=== PATIENT | female | born 1940 | race Caucasian/White ===

== ENCOUNTER 2016-10-24 14:46 | Emergency (ER) | payer MEDICARE, OTHER ==
[~2016-10-24] VITALS: Ht 144.8 cm; Wt 84.1 kg
[~2016-10-24 14:46] MED LIST: ACET325T40 PO; AMIO200T2 PO; ATOR20TA38 PO; BENA10TA48 PO; ETOMIDATE 20 MG INJ ONE; LEVO25TA53 PO; PANT40TA3 PO; POLY17PO6 PO; PROPOFOL 200 MG INJ ONE; SUCCINYLCHOLINE CHLORIDE 100 MG/5 ML SYG IV ONE; UDCOL PO
[2016-10-24] MEDS ORDERED: SOD CHLORIDE 0.9% 500 ML IV STA (14:52)
[2016-10-24 15:02] LABS: BASOPHIL # 0.1 10^3/ul (0.0-0.1); BASOPHILS % 0.4 % (0.0-2.0); EOSINOPHILS # 0.2 10^3/ul (0.0-0.5); HEMATOCRIT 45.4 % (37.0-47.0); HEMOGLOBIN 14.9 g/dl (12.0-16.0); LYMPHOCYTES # 4.4 10^3/ul (0.8-2.9); LYMPHOCYTES % 29.7 % (15.0-51.0); MEAN CORPUSCULAR HEMOGLOBIN 29.4 pg (29.0-33.0); MEAN CORPUSCULAR HGB CONC 32.8 g/dl (32.0-37.0); MEAN CORPUSCULAR VOLUME 89.7 fl (82.0-101.0); MEAN PLATELET VOLUME 10.1 fl (7.4-10.4); MONOCYTE # 1.3 10^3/ul (0.3-0.9); MONOCYTES % 8.6 % (0.0-11.0); NEUTROPHIL # 8.8 10^3/ul (1.6-7.5); NEUTROPHILS % 59.8 % (39.0-77.0); PLATELET COUNT 434 10^3/UL (140-415); RED BLOOD COUNT 5.06 10^6/ul (4.20-5.40); RED CELL DISTRIBUTION WIDTH 13.2 % (11.5-14.5); WHITE BLOOD COUNT 14.7 10^3/ul (4.8-10.8)
[2016-10-24 15:11] VITALS: Ht 144.8 cm; Wt 84.1 kg
[2016-10-24 15:16] LABS: INR 1.02; PROTIME 13.4 Sec (12.2-14.2)
[2016-10-24 15:22] LABS: ANION GAP 26 (8-16); BLOOD UREA NITROGEN 26 mg/dl (7-20); CARBON DIOXIDE 25 mmol/L (21-31); CHLORIDE 94 mmol/L (97-110); CREATININE 1.41 mg/dl (0.44-1.00); GLUCOSE 153 mg/dl (70-220); POTASSIUM 5.1 mmol/L (3.5-5.1); SODIUM 140 mmol/L (135-144)
[2016-10-24] MEDS ORDERED: ETOMIDATE 20 MG INJ IV ONE (15:30)
[2016-10-24] MEDS ORDERED: CEFTRIAXONE 1 GM/50 ML (PMX) 50 ML IVPB ONE (15:30)
[2016-10-24] MEDS ORDERED: PROPOFOL 100 ML IV ONE (15:30)
[2016-10-24 15:33] LABS: TROPONIN-I < 0.012 ng/ml (0.00-0.12)
[2016-10-24] MEDS ORDERED: ATOR20TA38 PO (16:22)
[2016-10-24] MEDS ORDERED: CLON-379 PO (16:23)
[2016-10-24] MEDS ORDERED: LISI10TA2 PO (16:23)
[2016-10-24] MEDS ORDERED: HYDR12.58 PO (16:24)
[2016-10-24] MEDS ORDERED: LORA0.5T PO (16:24)
[2016-10-24] MEDS ORDERED: METO-448 PO (16:25)
[2016-10-24] MEDS ORDERED: DABI75CA2 PO (16:25)
--- NOTE | 2016-10-24 16:41 | RADRPT ---
PROCEDURE: XR Chest. CLINICAL INDICATION: Possible Stroke TECHNIQUE: Single frontal view of the chest was obtained COMPARISON: Chest x-ray 02/24/2015 FINDINGS: There is a new endotracheal tube with tip projecting approximately 3.7 cm above the kat. There are low lung volumes. The cardiac silhouette is mildly enlarged. There are atherosclerotic calcifications of the thoracic aorta. There is mild blunting of the left costophrenic angle, suggesting a trace left pleural effusion vers us atelectasis. No pneumothorax or parenchymal consolidation is identified. There are degenerative changes of the visualized spine. IMPRESSION: 1. New placement of endotracheal tube with tip projecting approximately 0.7 cm above the kat. 2. Low lung volumes with mild cardiomegaly and thoracic aortic atherosclerotic disease. 3. Mild blunting of the left costophrenic angle, suggesting a trace left pleural effusion versus at electasis. RPTAT: PP Physician Ministerio Date Time Electronically viewed and signed by Refugio Hathaway Physician on 10/24/2016 16:40 [place]/
--- NOTE | 2016-10-24 16:55 | ERA ---
ER Documentation Chief Complaint Date/Time DATE: 10/24/16 TIME: 16:37 Chief Complaint BROUGHT IN VIA EMS FROM HOME DUE TO ALOC, EYES OPEN AND NON-RESPONSIVE HPI This 76-year-old female was brought in by paramedics because of witnessed acute loss of consciousness at her halfway. She has gaze deviation to the right and a history of stroke. She had residual right arm weakness from the stroke. Patient is unresponsive to anything except pain. ROS Unobtainable Medications Home Meds Active Scripts Pantoprazole* (Protonix*) 40 Mg Tablet.dr, 40 MG PO DAILY for 30 Days, TAB Prov:RADHA MCCAULEY MD 02/04/15 Reported Medications Metoprolol Tartrate* (Lopressor*) 25 Mg Tab, 25 MG PO DAILY, #30 TAB 10/24/16 Dabigatran Etexilate Mesylate* (Pradaxa*) 75 Mg Cap, 75 MG PO DAILY, CAP 10/24/16 Hydrochlorothiazide* (Hydrochlorothiazide*) 12.5 Mg Tablet, 12.5 MG PO DAILY, # 30 TAB 10/24/16 Lorazepam* (Lorazepam*) 0.5 Mg Tablet, 0.5 MG PO BID Y for ANXIETY, TAB 10/24/16 Lisinopril* (Lisinopril*) 10 Mg Tablet, 10 MG PO DAILY, #30 TAB 10/24/16 Clonidine Hcl* (Clonidine Hcl*) 0.1 Mg Tab, 0.1 MG PO BID, TAB 10/24/16 Atorvastatin Calcium* (Atorvastatin Calcium*) 20 Mg Tablet, 20 MG PO QHS, #30 TAB 10/24/16 Levothyroxine Sodium* (Levothyroxine Sodium*) 25 Mcg Tablet, 25 MCG PO AC BREAKFAST, TAB 01/28/15 Amiodarone Hcl* (Amiodarone Hcl*) 200 Mg Tablet, 200 MG PO DAILY, TAB 01/28/15 Discontinued Reported Medications Benazepril Hcl* (Benazepril Hcl*) 10 Mg Tablet, 10 MG PO DAILY, TAB 01/28/15 Discontinued Scripts Polyethylene Glycol* (Miralax*) 17 Gm/Pkt Liq, 17 GM PO DAILY Y for CONSTIPATION for 30 Days Prov:RADHA MCCAULEY MD 02/04/15 Docusate Sodium* (Docusate Sodium* Liq) 100 Mg/10 Ml Soln, 100 MG PO BID for 30 Days Prov:RADHA MCCAULEY MD 02/04/15 Atorvastatin Calcium* (Atorvastatin Calcium*) 20 Mg Tab, 40 MG PO HS for 30 Days Prov:RADHA MCCAULEY MD 02/04/15 Acetaminophen (MAPAP) 325 Mg Tab, 650 MG PO Q6H Y for PAIN LEVEL 1-3 OR FEVER for 30 Days Prov:RADHA MCCAULEY MD 02/04/15 Allergies Allergies: Coded Allergies: No Known Allergy (Unverified , 01/28/15) PMhx/Soc History of Surgery: No Anesthesia Reaction: No (UNKNOWN) Hx Neurological Disorder: Yes (STROKE;RT HEMPARESISSEVERE OROPHARYNGEAL DYSPHAGIA; APHASIA) Hx Respiratory Disorders: No Hx Cardiac Disorders: Yes (CVA 2015, HTN) Hx Psychiatric Problems: Yes (Pt had depression tx when came to [facility]) Hx Miscellaneous Medical Probl: Yes (acute kidney injury, obesity) Hx Alcohol Use: No (UTD) Hx Substance Use: No Hx Tobacco Use: No (UTD) Smoking Status: Never smoker Physical Exam Vitals Vital Signs Date Time Temp Pulse Resp B/P Pulse Ox O2 Delivery O2 Flow Rate FiO2 10/24/16 15:11 98.5 101 16 186/84 98 Physical Exam Const: [] Severe distress, Kussmaul breathing Head: Atraumatic Eyes: Normal Conjunctiva, gaze to the right, pupils nonreactive ENT: Normal External Ears, Nose and Mouth., Mucous membranes moist, vomit from Neck: Full range of motion..~ No meningismus. Resp: Clear to auscultation bilaterally Cardio: Regular rate and rhythm, no murmurs Abd: Soft, non tender, non distended. Normal bowel sounds Skin: No petechiae or rashes Back: No midline or flank tenderness Ext: No cyanosis, or edema Neur: Eyes open with gaze deviation to the right, intact corneal reflex, withdraws from pain everywhere except for her left leg, no other apparent neurological function. Psych: Normal Mood and Affect Result Diagram: 10/24/16 1455 10/24/16 1455 Results 24 hrs Laboratory Tests Test 10/24/16 14:55 White Blood Count 14.710^3/ul Red Blood Count 5.0610^6/ul Hemoglobin 14.9g/dl Hematocrit 45.4% Mean Corpuscular Volume 89.7fl Mean Corpuscular Hemoglobin 29.4pg Mean Corpuscular Hemoglobin Concent 32.8g/dl Red Cell Distribution Width 13.2% Platelet Count 76422^3/UL Mean Platelet Volume 10.1fl Neutrophils % 59.8% Lymphocytes % 29.7% Monocytes % 8.6% Eosinophils % 1.0% Basophils % 0.4% Nucleated Red Blood Cells % 0.0/100WBC Neutrophils # 8.810^3/ul Lymphocytes # 4.410^3/ul Monocytes # 1.310^3/ul Eosinophils # 0.210^3/ul Basophils # 0.110^3/ul Nucleated Red Blood Cells # 0.010^3/ul Prothrombin Time 13.4Sec Prothrombin Time Ratio 1.0 INR International Normalized Ratio 1.02 Activated Partial Thromboplast Time 27.0Sec Sodium Level 140mmol/L Potassium Level 5.1mmol/L Chloride Level 94mmol/L Carbon Dioxide Level 25mmol/L Anion Gap 26 Blood Urea Nitrogen 26mg/dl Creatinine 1.41mg/dl Glucose Level 153mg/dl Hemoglobin A1c 5.7% Calcium Level 10.0mg/dl Troponin I < 0.012ng/ml Current Medications Medications (Trade) Dose Ordered Sig/Ramana Route PRN Reason Start Time Stop Time Status Last Admin Dose Admin Sodium Chloride 500 ml @ 500 mls/hr Q1H STAT IV 10/24/16 14:52 10/24/16 15:51 DC 10/24/16 15:44 Propofol (Diprivan) 100 ml @ 0 mls/hr TITRATE ONCE IV 10/24/16 15:30 10/24/16 15:31 DC Etomidate 20 mg 20 mg ONCE ONCE IV 10/24/16 15:30 10/24/16 15:31 DC 10/24/16 15:44 Ceftriaxone Sodium (Rocephin) 50 ml @ 100 mls/hr ONCE ONCE IVPB 10/24/16 15:30 10/24/16 15:59 DC 10/24/16 16:23 Procedures/MDM Acute loss of consciousness with concern for possible large stroke. No brain bleed on CT. Code stroke was called on arrival. Tele-neurology evaluated the patient believe she may be having a large stroke although she is on Pradaxa she cannot receive TPA. She believes it is possible the this patient may have a large stroke as she has only pain sensation of the whole body with gaze deviation but does not have any reaction of her left leg. Patient has no signs of cardiac ischemia. Rectal aspirin 300 mg given. She was intubated for airway protection and she was altered and vomiting. Was given 500 cc of IV fluid. I then spoke with interventionalist at [facility] [[email or web address]], who accepts the transfer. Was then called back and notified the because of technical difficulties with her machine the patient will be transferred to [facility], who arranges [place] been made within that they are on the way and will pick the patient up in 30 minutes. 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 Head CT interpretation: Large old left-sided stroke with no acute process. I see no hemorrhage, no mass-effect no midline shift, no skull fracture Chest x-ray interpretation: Poor inspiration, ET tube in place proximally 3 cm above the kat, no other acute process, no pneumothorax, no pulmonary edema, no fractures ET the patient note: Patient was creatinine with bag mask ventilation, RSI was used with etomidate and rocuronium. Patient is easily intubated with a 7.5 ET tube using a MAC 4 blade through visualized cords, entitled CO2 color change positive. Patient oxygen 8100% after the procedure, tolerated well, no complications. One attempt was made Critical care time 44 minutes: This includes management of a critical patient with possible large infarct, ventilator management, careful fluid administration , multiple visits the patient's bedside to reassess neurological status, discussion with tele-neurology doctor, discussion with [facility] [email or web address] neurosurgeon, discussion with patient's , chart review, this does not include any billable procedures Departure Diagnosis: Primary Impression: Syncope Additional Impressions: Respiratory failure Aspiration into airway Vomiting Renal insufficiency Condition: Critical AUREA FROST DO Oct 24, 2016 16:48
[2016-10-24] MEDS ORDERED: ASPIRIN 300 MG SUPP PR ONE (17:00)
[2016-10-24 17:05] VITALS: BP 154/66; PULSE 88; TEMP 98.5
[2016-10-24 17:23] LABS: ADD UMIC YES; UR ASCORBIC ACID 40 mg/dL (NEGATIVE); UR BILIRUBIN (Dip) NEGATIVE (NEGATIVE); UR BLOOD (Dip) NEGATIVE (NEGATIVE); UR CLARITY SLIGHTLY CLOUDY (CLEAR); UR COLOR YELLOW (YELLOW); UR GLUCOSE (Dip) NEGATIVE (NEGATIVE); UR KETONES (Dip) TRACE mg/dL (NEGATIVE); UR LEUKOCYTE ESTERASE (Dip) NEGATIVE Leu/ul (NEGATIVE); UR MUCUS FEW /HPF (NONE SEEN); UR NITRITE (Dip) NEGATIVE (NEGATIVE); UR RBC 4 /HPF (0-5); UR SPECIFIC GRAVITY (Dip) 1.024 (1.003-1.030); UR TOTAL PROTEIN (Dip) 1+ mg/dl (NEGATIVE); UR UROBILINOGEN (Dip) NEGATIVE (NEGATIVE)
[2016-10-24 17:25] VITALS: RESP 26
--- NOTE | 2016-10-24 17:26 | STROKE ---
Date/Time of Note Date/Time of Note DATE: 10/24/16 TIME: 15:53 Patient Information General Patient location: emergency Arrival Date Age 76 Gender female Weight 84.09 kg Vital Signs Vital Signs Vital Signs Date Time Temp Pulse Resp B/P Pulse Ox O2 Delivery O2 Flow Rate FiO2 10/24/16 15:11 98.5 101 16 186/84 98 Patient History Past Medical History Stroke Current Medications Anti-Coagulants: Pradexa (Dabidatran) Allergies: Coded Allergies: No Known Allergy (Unverified , 01/28/15) Labs Hematology Labs Hematology Test 10/24/16 14:55 White Blood Count 14.710^3/ul (4.8-10.8) Red Blood Count 5.0610^6/ul (4.20-5.40) Hemoglobin 14.9g/dl (12.0-16.0) Hematocrit 45.4% (37.0-47.0) Mean Corpuscular Volume 89.7fl (82.0-101.0) Mean Corpuscular Hemoglobin 29.4pg (29.0-33.0) Mean Corpuscular Hemoglobin Concent 32.8g/dl (32.0-37.0) Red Cell Distribution Width 13.2% (11.5-14.5) Platelet Count 75851^3/UL (140-415) Mean Platelet Volume 10.1fl (7.4-10.4) Neutrophils % 59.8% (39.0-77.0) Lymphocytes % 29.7% (15.0-51.0) Monocytes % 8.6% (0.0-11.0) Eosinophils % 1.0% (0.0-7.0) Basophils % 0.4% (0.0-2.0) Nucleated Red Blood Cells % 0.0/100WBC (0.0-0.0) Neutrophils # 8.810^3/ul (1.6-7.5) Lymphocytes # 4.410^3/ul (0.8-2.9) Monocytes # 1.310^3/ul (0.3-0.9) Eosinophils # 0.210^3/ul (0.0-0.5) Basophils # 0.110^3/ul (0.0-0.1) Nucleated Red Blood Cells # 0.010^3/ul (0.0-0.0) Chemistry Labs Chemistry Test 10/24/16 14:55 Sodium Level 140mmol/L (135-144) Potassium Level 5.1mmol/L (3.5-5.1) Chloride Level 94mmol/L (97-110) Carbon Dioxide Level 25mmol/L (21-31) Anion Gap 26 (8-16) Blood Urea Nitrogen 26mg/dl (7-20) Creatinine 1.41mg/dl (0.44-1.00) Glucose Level 153mg/dl (70-220) Calcium Level 10.0mg/dl (8.4-10.2) Troponin I < 0.012ng/ml (0.00-0.12) Coagulation Labs: Coagulation Test 10/24/16 14:55 Prothrombin Time 13.4Sec (12.2-14.2) Prothrombin Time Ratio 1.0 INR International Normalized Ratio 1.02 Activated Partial Thromboplast Time 27.0Sec (25.0-35.0) History & Physical Patient History Notes Pt Hx Reviewed History of Present Illness 76yo F with 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 Patient was apparently normal at 2pm when she was observed by her roommate to be going to the bathroom and suddenly collapsed. On arrival to the ED, patient was observed to have right sided gaze deviation and otherwise unresponsive. Patient required emergent intubation with etomidate and succinylcholine and was subsequently observed to be moving her arm. Now patient has also been administered propofol. Review of Systems Psychiatric/Neurological: pre-existing deficit (patient unable to provide history due to clinical condition.) NIH Stroke Scale NIH Stroke Scale 1A - Level of Conciousness: 3 - Responds only w [id number] LOC Questions: 2 - Answers no [id number] - LOC Commands: 2 - Performs neither task2 - Best Gaze: 0 - Normal3 - Visual: 3 - Bilateral Hemianopia4 - Facial Palsy: 3 - Bilateral [id number] - Motor Arm - Left: 4 - No [id number] - Motor Arm - Right: 4 - No [id number] - Motor Leg - Left: 4 - No [id number] - Motor Leg - Right: 4 - No movement7 - Limb Ataxia: 0 - Absent8 - Sensory: 2 - Severe to total loss9 - Best Language: 3 - Mute or global aphasiaDysarthria: 2 - Severe 11 - Extinction and inattentio: 0 - No abnormalityTotal Score: 36 Date/Time Recorded DATE: 10/24/16 TIME: 15:53 Submitted By Leticia Odonnell t-PA Imaging Review Imaging Reviewed: Yes Date/Time Imaging Reviewed DATE: 10/24/16 TIME: 15:53 Imaging Findings No acute changes t-PA Administration Recommendation: No Weight 84.09 kg Recommedation submitted by Leticia Odonnell Reason t-PA not Recommended patient takes Pradaxa t-PA Not Recommended Date/Time 15:35 Recommendations Impression Diagnosis ischemic stroke Recommendation 76yo F presents with acute onset collapse. Neurological exam is notable for patient being unresponsive to verbal and mechanical stimulation, and demonstrating absent deep pain response in the left leg only. Given patient's initial presentation with right gaze deviation, differential diagnosis includes ischemic stroke vs seizure. Patient no longer has eye deviation to suggest ongoing seizure and the left leg numbness is more suggestive of ischemic stroke. Patient is not a TPA candidate due to taking Pradaxa. I recommend stat CTA of the head and neck to determine if the patient is a neurointerventional candidate. I discussed this with Dr. Espinosa, who plans to call the comprehensive stroke center to determine if they prefer CTA be done at their institution, and he will call me back if CTA is to be done here so that I may follow-up on these results. I recommend further workup to include MRI Brain without gadolinium and transthoracic echocardiogram. Diagnostic Labs: Lipid Proile Hgb A1C CBC w/Diff Coags Therapy: Physical Therapy Speech Therapy Occupational Therapy Misc. Recommendations: Bedside Swallow Evaluation Pnumatic Compression Devices Stroke Education Smoking Education LETICIA ODONNELL Oct 24, 2016 16:11
[2016-10-24 17:55] LABS: BARBITURATES Negative (NEGATIVE); BENZODIAZEPINES Negative (NEGATIVE); CANNABINOIDS Negative (NEGATIVE); COCAINE Negative (NEGATIVE); OPIATES Negative (NEGATIVE)
== END 2016-10-24 18:32 | disposition short-term general hospital (02) ==
LOC: E/R 14:46
DX: R55 Syncope and collapse (principal); J96.90 Respiratory failure, unspecified, unspecified whether with hypoxia or hypercapnia; R11.10 Vomiting, unspecified; N28.9 Disorder of kidney and ureter, unspecified; J69.0 Pneumonitis due to inhalation of food and vomit; I10 Essential (primary) hypertension; E66.9 Obesity, unspecified; Z68.41 Body mass index [BMI] 40.0-44.9, adult
CPT/HCPCS: 31500; 70450; 71010; 80048; 80307; 81001; 83036; 84484; 85025; 85610; 85730; 93005; 94002; 96374; 99291; J0696; J7040; J7999